=== PATIENT | female | born 1955 | race Caucasian/White ===

== ENCOUNTER → 2018-12-08 | Outpatient (CLI) | payer OTHER ==
[~2018-12-08] MED LIST: APAP500; FAMOTIDINE20 MG; HYDROCODON-ACE1 EAC7 PO; IBUPROFEN 800800 M1 PO; NOHOMEMEDICATIONS; TRAMADOL 50 MG50 MG PO; UNICOMPLEX M TA1 TA1 PO; ZOFRAN4 MG PO
== END ==
LOC: M.PC 10:10
DX: M43.16 Spondylolisthesis, lumbar region (principal); M48.061 Spinal stenosis, lumbar region without neurogenic claudication; M54.16 Radiculopathy, lumbar region; M41.86 Other forms of scoliosis, lumbar region; Z79.899 Other long term (current) drug therapy

== ENCOUNTER → 2019-01-31 | Outpatient (CLI) | payer OTHER | END | disposition home or self-care (01) | LOC: M.PC 05:20 | DX: M51.16 Intervertebral disc disorders with radiculopathy, lumbar region (principal); M12.88 Other specific arthropathies, not elsewhere classified, other specified site; M47.26 Other spondylosis with radiculopathy, lumbar region; M48.061 Spinal stenosis, lumbar region without neurogenic claudication; M41.86 Other forms of scoliosis, lumbar region; M43.16 Spondylolisthesis, lumbar region; M79.7 Fibromyalgia; Z79.899 Other long term (current) drug therapy ==

== ENCOUNTER → 2019-02-14 | Outpatient (CLI) | payer OTHER | LOC: M.PC 04:56 | DX: M48.061 Spinal stenosis, lumbar region without neurogenic claudication (principal); M41.86 Other forms of scoliosis, lumbar region; M43.16 Spondylolisthesis, lumbar region; M54.16 Radiculopathy, lumbar region; Z79.899 Other long term (current) drug therapy ==

== ENCOUNTER → 2019-02-21 | Outpatient (CLI) | payer OTHER | END | disposition home or self-care (01) | LOC: M.PC 01:51 | DX: M54.16 Radiculopathy, lumbar region (principal); Z79.899 Other long term (current) drug therapy ==

== ENCOUNTER → 2019-03-07 | Outpatient (CLI) | payer MEDICARE, OTHER | LOC: M.PC 01:40 | DX: M41.86 Other forms of scoliosis, lumbar region (principal); M54.16 Radiculopathy, lumbar region; M43.16 Spondylolisthesis, lumbar region; M48.061 Spinal stenosis, lumbar region without neurogenic claudication; Z79.899 Other long term (current) drug therapy; Z79.891 Long term (current) use of opiate analgesic ==